=== PATIENT | female | born 1980 | race Caucasian/White ===

== ENCOUNTER 2019-04-22 05:18 | Day surgery (SDC) | payer OTHER | END 2019-04-22 12:00 | disposition home or self-care (01) | LOC: CIR.AMB 05:18 | DX: N71.1 Chronic inflammatory disease of uterus (principal); Z30.432 Encounter for removal of intrauterine contraceptive device; Z30.2 Encounter for sterilization ==

== ENCOUNTER 2022-06-03 01:23 | Emergency (ER) | payer OTHER ==
[~2022-06-03] VITALS: Ht 167.6 cm; Wt 63.5 kg
== END 2022-06-03 18:23 | disposition home or self-care (01) ==
LOC: ER 01:23
DX: N20.1 Calculus of ureter (principal); D27.1 Benign neoplasm of left ovary; D18.09 Hemangioma of other sites; K56.41 Fecal impaction